=== PATIENT | female | born 1960 | race Caucasian/White ===

== ENCOUNTER 2018-10-10 11:29 | Emergency (ER) | payer OTHER ==
--- NOTE | 2018-10-10 11:32 | PDOC ---
History of Present Illness - General Chief Complaint: Respiratory Stated Complaint: COUGH 1 WEEK COLD SYMPTOMS 3 WEEKS Past History - Past Medical History Allergies/Adverse Reactions: Allergies Allergy/AdvReac Type Severity Reaction Status Date / Time No Known Drug Allergies Allergy Verified 10/10/18 11:32 Home Medications: Ambulatory Orders Multi Vitamin Daily 1 each PO AM tablet 03/02/13 Cholecalciferol (Vitamin D3) [Vitamin D3] 1,000 unit PO DAILY tablet 06/23/14 Benzonatate [Tessalon Pearls -] 100 mg PO TID PRN #21 capsule 10/10/18 Anemia: Yes Asthma: No Cancer: No Cardiac Disorders: No CVA: No COPD: No CHF: No Dementia: No Diabetes: No GI Disorders: No Disorders: No HTN: No Hypercholesterolemia: No Liver Disease: No Seizures: No Thyroid Disease: No - Surgical History Abdominal Surgery: No Appendectomy: No Cardiac Surgery: No Cholecystectomy: No Lung Surgery: No Neurologic Surgery: No Orthopedic Surgery: No - Suicide/Smoking/Psychosocial Hx Smoking History: Never smoked Hx Alcohol Use: Yes (RARELY) Drug/Substance Use Hx: No Substance Use Type: Alcohol Hx Substance Use Treatment: No Medical Decision Making - Medical Decision Making HPI: 57yo F with no significant PMH presenting with cough x 3 weeks. Patient states she called her primary care team's office today and was instructed by a physician to come to the ER for further evaluation. The cough has worsened in severity and frequency. Coughing fits will make her feel short of breath but she never has dyspnea without coughing. Cough is productive of yellow sputum. Has taken mucinex, most recently last night, which initially provided relief but no longer working as well. Patient also endorses "migraine" headaches which are at her baseline and relieved with excedrin or tylenol. Denies history of asthma, COPD, or smoking. No fevers, chills, chest pain, or abdominal pain. PCP: Dr. Velasquez ROS: Constitutional: no fever, no chills HEENT: no throat pain, no dysphagia Cardiovascular: no chest pain, no palpitations Respiratory: +cough, +congestion Gastrointestinal: no abdominal pain, no nausea Genitourinary: no dysuria, no hematuria Musculoskeletal: no myalgia, no arthralgia Skin: no rash, no itching Neurologic: +headache, no weakness PE: General: Awake, alert, and fully oriented, in no acute distress Head: No signs of trauma Eyes: EOMI, sclera anicteric ENT: Moist mucus membranes Neck: Normal ROM, supple Lungs: Lungs clear, Normal breath sounds; coughing intermittently without sputum production Cardio: Regular rhythm, S1 and S2 present Abdomen: Soft, nontender. No guarding, no rebound, no masses Extremities: Normal range of motion, Distal pulses present SKIN: Warm, Dry, normal turgor Neurologic: Cranial nerves II through XII grossly intact. Normal speech ED Course/MDM: DDX including but not limited to acute bronchitis, upper respiratory illness, viral syndrome, pneumonia, asthma, COPD Saline nebs CXR PA/lat 10/10/18 11:32 Saline nebs PA/lat 10/10/18 11:57 Patient feeling better after saline neb Pending Xray 10/10/18 12:40 Xray without acute pathology, per radiology: "2 views of the chest reveal clear lungs, unfolded aorta, normal ulises and normal heart. The angles are sharp. The bones and soft tissues are intact. Since 07/03/2011 there is a slightly more prominent mediastinum but no sign of an acute process. Impression : No acute chest pathology " Patient's clinically with acute bronchitis given her persistent cough for three weeks. Presentation consistent with viral syndrome. Xray without consolidation so low suspicion of pneumonia. Patient amenable to following up with primary care provider. Jazmine maldonado sent to pharmacy Discharged with return precautions 10/10/18 12:45 *DC/Admit/Observation/Transfer Diagnosis at time of Disposition: Cough in adult patient - Discharge Dispostion Disposition: HOME Condition at time of disposition: Improved - Prescriptions Prescriptions: Benzonatate [Tessalon Pearls -] 100 mg PO TID PRN #21 capsule PRN Reason: Cough - Referrals Referrals: Олег Velasquez MD [Primary Care Provider] - - Patient Instructions Printed Discharge Instructions: DI for Acute Bronchitis Additional Instructions: You came into the emergency department with a cough. Xray was negative for acute pathology. Your history and physical was consistent with a viral illness which does not benefit with antibiotic treatment. Make sure you drink plenty of water to prevent dehydration. Prescription sent to your pharmacy. Take as instructed. Follow-up with your primary care physician in the next 72 hours to discuss this ED visit and to further evaluate your symptoms. Your care is not complete until you do so. Call and make an appointment. Immediate medical attention is required if you: have any chest pain, palpitations, shortness of breath, severe headaches, changes in vision, focal numbness or weakness, any severe abdominal pain, any black tarry stool, or any new or concerning symptoms. If you think you are having an emergency, call for emergency medical services or present to the emergency department right away. - Post Discharge Activity
--- NOTE | 2018-10-10 11:54 | PDOC ---
Attending Attestation - Resident Resident Name: Dottie Talamantes - ED Attending Attestation I have performed the following: I have examined & evaluated the patient, The case was reviewed & discussed with the resident, I agree w/resident's findings & plan, Exceptions are as noted - HPI HPI: Agree with resident HPI - Physicial Exam PE: GENERAL: Awake, alert, and fully oriented, in no acute distress. Non toxic. EYES: PERRLA, EOMI, sclera anicteric, conjunctiva clear ENT: Oropharynx clear without exudates. Moist mucosa NECK: Normal ROM, supple, no lymphadenopathy, JVD, or masses LUNGS: Breath sounds equal, clear to auscultation bilaterally. No wheezes, and no crackles HEART: Regular rate and rhythm, normal S1 and S2, no murmurs, rubs or gallops ABDOMEN: Soft, nontender, normoactive bowel sounds. No guarding, no rebound. No masses EXTREMITIES: Normal range of motion, no edema. No clubbing or cyanosis. No cords, erythema, or tenderness NEUROLOGICAL: Normal speech, cranial nerves intact, equal strength and sensation b/l SKIN: Warm, Dry, normal turgor, no rashes or lesions noted. - Medical Decision Making 10/12/18 18:21 57yo F presents to the ED with cough following URI sxs DDx bronchitis vs PNA Vitals and exam unremarkable CXR clear Likely post URI bronchitis Pt feeling significantly better after saline neb Will f/u with Dr. Velasquez within 1 week
[2018-10-10] MEDS ORDERED: SODIUM CHLORIDE FOR INHALATION 3 ML VIAL.NEB IH ONE ×2 (11:56→12:00)
[2018-10-10 12:00] VITALS: BP 151/94; PULSE 90; TEMP 97.9; BMI 29.2
== END 2018-10-10 13:02 | disposition home or self-care (01) ==
LOC: FER 11:29
PROC: 3E0337Z Introduction of Electrolytic and Water Balance Substance into Peripheral Vein, Percutaneous Approach (ICD-10-PCS; principal; 2018-10-10)
DX: R05 Cough (principal)
CPT/HCPCS: 71046-TC-FY; 99282-25

== ENCOUNTER 2020-01-13 13:48 | Emergency (ER) | payer OTHER ==
[2020-01-13 13:52] VITALS: BP 134/73; PULSE 74; TEMP 97.4; BMI 26.5
== END 2020-01-13 15:40 | disposition home or self-care (01) ==
LOC: JER 13:48
DX: Z11.59 Encounter for screening for other viral diseases (principal)
CPT/HCPCS: 71046-TC-FY; 99284-25